=== PATIENT | male | born 1960 | race Caucasian/White ===

== ENCOUNTER 2016-10-29 16:18 | Emergency (ER) | payer MEDICAID ==
[~2016-10-29] VITALS: Ht 165.1 cm; Wt 55.0 kg
[~2016-10-29 16:18] MED LIST: ACET500C5 PO; BACTDS PO; CEPH-443 PO; CEPH500C PO; IBUP400T22 PO
[2016-10-29 16:22] VITALS: Ht 165.1 cm; Wt 55.0 kg
[2016-10-29] MEDS ORDERED: KETOROLAC 15 MG INJ IV STA (18:43)
[2016-10-29] MEDS ORDERED: CEFTRIAXONE 1 GM/50 ML (PMX) 50 ML IVPB STA (18:43)
[2016-10-29] MEDS ORDERED: TRIMETHOPRIM/SULFAMETHOX (DS) TAB PO ONE (19:00)
--- NOTE | 2016-10-29 19:08 | RADRPT ---
PROCEDURE: XR Ankle. CLINICAL INDICATION: 56 years of age, male. Pain and cellulitis.. TECHNIQUE: Three views of the right ankle. COMPARISON: None available. FINDINGS: No acute fracture or dislocation is identified. Negative for periosteal reaction or bony destructio n to indicate osteomyelitis. Normal alignment on this non-stressed view. There is moderate soft tissue swelling involving the lower leg, ankle and foot. Negative for soft ti ssue gas.. IMPRESSION: Moderate soft tissue swelling without soft tissue gas. No focal bony abnormality is seen.. RPTAT: HCTS Physician Sarahi Date Time Electronically viewed and signed by Physician Sarahi on 10/29/2016 19:08 CS/
[2016-10-29 19:40] LABS: BASOPHILS % 0.3 % (0.0-2.0); EOSINOPHILS # 0.4 10^3/ul (0.0-0.5); EOSINOPHILS % 2.7 % (0.0-7.0); HEMATOCRIT 36.5 % (42.0-52.0); HEMOGLOBIN 11.9 g/dl (14.0-18.0); LYMPHOCYTES # 1.5 10^3/ul (0.8-2.9); MEAN CORPUSCULAR HEMOGLOBIN 27.4 pg (29.0-33.0); MEAN CORPUSCULAR HGB CONC 32.6 g/dl (32.0-37.0); MEAN CORPUSCULAR VOLUME 83.9 fl (82.0-101.0); MEAN PLATELET VOLUME 9.2 fl (7.4-10.4); MONOCYTE # 1.3 10^3/ul (0.3-0.9); MONOCYTES % 10.3 % (0.0-11.0); NEUTROPHIL # 9.5 10^3/ul (1.6-7.5); NEUTROPHILS % 74.2 % (39.0-77.0); PLATELET COUNT 358 10^3/UL (140-415); RED BLOOD COUNT 4.35 10^6/ul (4.70-6.10); RED CELL DISTRIBUTION WIDTH 12.3 % (11.5-14.5); WHITE BLOOD COUNT 12.8 10^3/ul (4.8-10.8)
[2016-10-29 20:03] LABS: ALBUMIN 3.4 g/dl (3.3-4.9); ALBUMIN/GLOBULIN RATIO 1.13; BILIRUBIN,INDIRECT 0.2 mg/dl (0-1.1); BILIRUBIN,TOTAL 0.2 mg/dl (0.2-1.3); CALCIUM 8.9 mg/dl (8.4-10.2); CREATININE 0.74 mg/dl (0.61-1.24); POTASSIUM 4.2 mmol/L (3.5-5.1); TOTAL PROTEIN 6.4 g/dl (6.1-8.1)
[2016-10-29] MEDS ORDERED: CEPH-443 PO (20:09)
[2016-10-29] MEDS ORDERED: SULF1TAB31 PO (20:09)
[2016-10-29] MEDS ORDERED: IBUP-1542 PO (20:09)
--- NOTE | 2016-10-29 20:13 | ERD ---
ER Documentation Chief Complaint Date/Time DATE: 10/29/16 TIME: 20:11 Chief Complaint Complains of right leg pain x 3 days HPI This 56-year-old male complains of right ankle pain and redness for last 3 days. He may have an abrasion as he is frequently and down stairs and cycling cans and bottles. Denies vomiting, shortness breath or chest pain. He felt febrile last night. ROS All systems reviewed and are negative except as per history of present illness. Medications Home Meds Active Scripts Cephalexin* (Keflex*) 500 Mg Capsule, 500 MG PO QID for 7 Days, CAP Prov:REJI MANDEL MD 10/29/16 Sulfamethoxazole/Trimethoprim* (Bactrim Ds* Tablet) 1 Each Tablet, 1 TAB PO BID for 7 Days, #14 TAB Prov:REJI MANDEL MD 10/29/16 Ibuprofen* (Motrin*) 600 Mg Tab, 600 MG PO Q6, #15 TAB Prov:REJI MANDEL MD 10/29/16 Cephalexin* (Keflex*) 500 Mg Capsule, 500 MG PO QID for 5 Days, CAP Prov:SANTANA CHACKO NP 12/03/15 Acetaminophen* (Tylophen*) 500 Mg Capsule, 1 CAP PO Q6H Y for PAIN AND OR ELEVATED TEMP, #20 CAP Prov:SANTANA CHACKO NP 12/03/15 Ibuprofen* (Motrin*) 400 Mg Tab, 400 MG PO Q6 for 7 Days, #30 TAB 0 Refills Prov:ELMIRA FOX PA-C 10/06/15 Sulfamethoxazole-Trimethoprim* (Bactrim* DS) 800-160 Mg Tab, 1 TAB PO BID for 7 Days, #14 TAB 0 Refills Prov:ELMIRA FOX PA-C 10/06/15 Cephalexin* (Cephalexin*) 500 Mg Capsule, 500 MG PO Q8 for 7 Days, #21 CAP 0 Refills Prov:ELMIRA FOX PA-C 10/06/15 Allergies Allergies: Coded Allergies: No Known Allergy (Unverified , 10/05/15) PMhx/Soc Medical and Surgical Hx: pt denies Surgical Hx History of Surgery: No Anesthesia Reaction: No Hx Neurological Disorder: No Hx Respiratory Disorders: No Hx Cardiac Disorders: No Hx Psychiatric Problems: No Hx Miscellaneous Medical Probl: Yes (Hep C) Hx Alcohol Use: Yes Hx Substance Use: Yes (MEHT, LAST 1 WEEK AGO) Hx Tobacco Use: Yes (15 CIGS/DAY) Smoking Status: Current every day smoker Physical Exam Vitals Vital Signs Date Time Temp Pulse Resp B/P Pulse Ox O2 Delivery O2 Flow Rate FiO2 10/29/16 16:22 98.4 106 20 128/82 98 Physical Exam Const: [] Alert, not ill-appearing. Head: Atraumatic Eyes: Normal Conjunctiva ENT: Normal External Ears, Nose and Mouth. Neck: Full range of motion..~ No meningismus. Resp: Clear to auscultation bilaterally Cardio: Regular rate and rhythm, no murmurs Abd: Soft, non tender, non distended. Normal bowel sounds Skin: No petechiae or rashes Back: No midline or flank tenderness Ext: No cyanosis, or edema. There is some redness and swelling around the right ankle and tenderness. There is no calf swelling or Homans sign there is no significant bony tenderness. No evidence of deficits. Neur: Awake and alert Psych: Normal Mood and Affect Result Diagram: 10/29/16192910/29/161929 Results 24 hrs Laboratory Tests Test 10/29/16 19:30 White Blood Count 12.810^3/ul Red Blood Count 4.3510^6/ul Hemoglobin 11.9g/dl Hematocrit 36.5% Mean Corpuscular Volume 83.9fl Mean Corpuscular Hemoglobin 27.4pg Mean Corpuscular Hemoglobin Concent 32.6g/dl Red Cell Distribution Width 12.3% Platelet Count 93833^3/UL Mean Platelet Volume 9.2fl Neutrophils % 74.2% Lymphocytes % 12.0% Monocytes % 10.3% Eosinophils % 2.7% Basophils % 0.3% Nucleated Red Blood Cells % 0.0/100WBC Neutrophils # 9.510^3/ul Lymphocytes # 1.510^3/ul Monocytes # 1.310^3/ul Eosinophils # 0.410^3/ul Basophils # 0.010^3/ul Nucleated Red Blood Cells # 0.010^3/ul Sodium Level 139mmol/L Potassium Level 4.2mmol/L Chloride Level 102mmol/L Carbon Dioxide Level 32mmol/L Anion Gap 9 Blood Urea Nitrogen 15mg/dl Creatinine 0.74mg/dl Glucose Level 97mg/dl Calcium Level 8.9mg/dl Total Bilirubin 0.2mg/dl Direct Bilirubin 0.00mg/dl Indirect Bilirubin 0.2mg/dl Aspartate Amino Transf (AST/SGOT) 26IU/L Alanine Aminotransferase (ALT/SGPT) 38IU/L Alkaline Phosphatase 89IU/L Total Protein 6.4g/dl Albumin 3.4g/dl Globulin 3.00g/dl Albumin/Globulin Ratio 1.13 Current Medications Medications (Trade) Dose Ordered Sig/Samantha Route PRN Reason Start Time Stop Time Status Last Admin Dose Admin Ketorolac Tromethamine 15 mg 15 mg ONCE STAT IV 10/29/16 18:43 10/29/16 18:44 DC 10/29/16 19:35 Ceftriaxone Sodium (Rocephin) 50 ml @ 100 mls/hr ONCE STAT IVPB 10/29/16 18:43 10/29/16 19:12 DC 10/29/16 19:35 Trimethoprim/ Sulfamethoxazole (Bactrim (Ds)) 1 tab ONCE ONCE PO 10/29/16 19:00 10/29/16 19:01 DC 10/29/16 19:35 Procedures/MDM Presents with signs of cellulitis on the right ankle. There is no laceration or puncture wound. X-ray Ankle 3V Interpreted by me: Bones: [No fracture] Joints: No dislocation patient-soft tissue swelling without fracture dislocation of right ankle. CBC shows white blood cell count of 12. Patient was given Rocephin 1 g IV, Toradol 30 mg IV and Bactrim double strength p.o. Patient shows no signs of sepsis or signs or symptoms to suggest osteomyelitis, no evidence of DVT on clinical exam. Patient will be treated with Bactrim and Keflex and ibuprofen instructions for elevation and return precautions. The patient was stable with no new complaints during the ER course. Clinically, there is no current evidence to suggest meningitis, sepsis, acute abdomen, pneumonia, acute coronary syndrome, pulmonary embolism, or any other emergent condition appearing to require further evaluation or hospitalization. The patient should certainly return for any new or worsening symptoms per the aftercare instructions. They should otherwise follow-up with her primary care doctor for reevaluation this week. Disclaimer: Inadvertent spelling and grammatical errors are likely due to EHR/dictation software use and do not reflect on the overall quality of patient care. Also, please note that the electronic time recorded on this note does not necessarily reflect the actual time of the patient encounter. Departure Diagnosis: Primary Impression: Cellulitis Site of cellulitis: extremity Site of cellulitis of extremity: lower extremity Laterality: right Qualified Code: L03.115 - Cellulitis of right lower extremity Additional Impression: Pain of right leg Condition: Stable Patient Instructions: Cellulitis Additional Instructions: Elevated at home. Recheck for new or worsening symptoms with primary care doctor. REJI MANDEL MD Oct 29, 2016 20:13
[2016-10-29 20:30] VITALS: BP 106/68; PULSE 98; RESP 17; TEMP 98.1
== END 2016-10-29 20:30 | disposition home or self-care (01) ==
LOC: FTE 16:18
DX: L03.115 Cellulitis of right lower limb (principal); F17.210 Nicotine dependence, cigarettes, uncomplicated
CPT/HCPCS: 36415; 73610; 80053; 85025; 96365; 96375; J0696; J1885; Z7502; Z7610

== ENCOUNTER 2018-01-11 08:29 | Emergency (ER) | END 2018-01-11 14:44 | disposition left against medical advice (07) ==

== ENCOUNTER → 2018-08-12 | Emergency (ER) | payer OTHER ==
[~2018-08-12] VITALS: Ht 167.6 cm; Wt 59.7 kg
[~2018-08-12] MED LIST changes: -ACET500C5 PO; -BACTDS PO; -CEPH500C PO; +FER325 PO; -IBUP400T22 PO; +SULF1TAB31 PO
[2018-08-12 10:59] VITALS: BP 119/75; PULSE 90; RESP 18; Ht 167.6 cm; Wt 59.7 kg
--- NOTE | 2018-08-12 11:44 | ERD ---
ER Documentation Chief Complaint Chief Complaint b/l upper arm abcess x 3 weeks HPI This is a 58-year-old male who presents with a healing abscess on his right upper extremity. He states he has had it for 3 weeks and it has already opened up and drained. The area is now crusting over and very dry. He had no fever. No numbness or tingling. Pain is controlled. ROS All systems reviewed and are negative except as per history of present illness. Medications Home Meds Active Scripts Cephalexin* (Keflex*) 500 Mg Capsule, 500 MG PO QID for 7 Days, CAP Prov:LIZANDRO CATALAN PA-C 08/12/18 Sulfamethoxazole/Trimethoprim* (Bactrim Ds* Tablet) 1 Each Tablet, 1 TAB PO BID, #14 TAB Prov:LIZANDRO CATALAN PA-C 08/12/18 Reported Medications Ferrous Sulfate* (Ferrous Sulfate*) 325 Mg Tabec, 325 MG PO DAILY, TAB 01/11/18 Allergies Allergies: Coded Allergies: No Known Allergy (Unverified , 10/05/15) PMhx/Soc History of Surgery: No Anesthesia Reaction: No Hx Neurological Disorder: No Hx Respiratory Disorders: No Hx Cardiac Disorders: No Hx Psychiatric Problems: No Hx Miscellaneous Medical Probl: Yes (Hep C) Hx Alcohol Use: Yes Hx Substance Use: Yes (MEHT, LAST 1 WEEK AGO) Hx Tobacco Use: Yes (15 CIGS/DAY) FmHx Family History: No diabetes Physical Exam Vitals Vital Signs Date Temp Pulse Resp B/P (MAP) Pulse Ox O2 O2 Flow FiO2 Time Delivery Rate 08/12/18 98.3 90 18 119/75 97 10:59 (90) Physical Exam Const: No acute distress Head: Atraumatic Eyes: Normal Conjunctiva ENT: Normal External Ears, Nose and Mouth. Neck: Full range of motion. No meningismus. Resp: Clear to auscultation bilaterally Cardio: Regular rate and rhythm, no murmurs Abd: Soft, non tender, non distended. Normal bowel sounds Skin: Right upper extremity over the lateral humerus area there is a healing abscess that is flat, no significant erythema, approximately 5 to 7 cm in diameter, dry flaky skin Procedures/MDM This patient has a healing abscess. Is already open and has been drained. No indication for further incision and drainage. He is discharged with Bactrim and Keflex. Patient counseled regarding my diagnostic impression and care plan. Prior to discharge all questions answered. Pt agrees with treatment plan and understands strict return precautions. Pt is instructed to follow up with primary care provider within 24-48 hours. Precautionary instructions provided including instructions to return to the ER if not improving or for any worsening or changing symptoms or concerns. Departure Diagnosis: Primary Impression: Abscess Condition: Stable Patient Instructions: Abscess, Antiobiotic Treatment Only Additional Instructions: Call your primary care doctor TOMORROW for an appointment during the next 1-2 days.See the doctor sooner or return here if your condition worsens before your appointment time. LIZANDRO CATALAN PA-C Aug 12, 2018 11:44
== END | disposition home or self-care (01) ==
LOC: FTE 10:54
DX: L02.413 Cutaneous abscess of right upper limb (principal); Z87.891 Personal history of nicotine dependence
CPT/HCPCS: 99283

== ENCOUNTER 2018-09-12 11:52 | Emergency (ER) | payer OTHER ==
[~2018-09-12] VITALS: Ht 160 cm; Wt 58.4 kg
[2018-09-12 11:54] VITALS: BP 150/79; PULSE 111; RESP 24; Ht 160 cm; Wt 58.4 kg
--- NOTE | 2018-09-12 13:08 | ERD ---
ER Documentation Chief Complaint Chief Complaint LEFT AND RIGHT ARM SWELLING X 2 WEEKS HPI 58 yr old male presenting with abscess and request for antibiotics. Patient sheets of heroin twice a day and is planning to return to rehab tomorrow but requested for antibiotics. Patient last antibiotics 2 weeks ago states that the abscesses are returning. Medical history denies. Social history she is heroin and smokes half pack a day. NKDA. Social history denies ROS All systems reviewed and are negative except as per history of present illness. Medications Home Meds Active Scripts Cephalexin* (Keflex*) 500 Mg Capsule, 500 MG PO QID for 7 Days, CAP Prov:DAVEY GOMEZ PA-C 09/12/18 Sulfamethoxazole/Trimethoprim* (Bactrim Ds* Tablet) 1 Each Tablet, 1 TAB PO BID, #14 TAB Prov:DAVEY GOMEZ PA-C 09/12/18 Cephalexin* (Keflex*) 500 Mg Capsule, 500 MG PO QID for 7 Days, CAP Prov:LIZANDRO CATALAN PA-C 08/12/18 Sulfamethoxazole/Trimethoprim* (Bactrim Ds* Tablet) 1 Each Tablet, 1 TAB PO BID, #14 TAB Prov:LIZANDRO CATALAN PA-C 08/12/18 Reported Medications Ferrous Sulfate* (Ferrous Sulfate*) 325 Mg Tabec, 325 MG PO DAILY, TAB 01/11/18 Allergies Allergies: Coded Allergies: No Known Allergy (Unverified , 10/05/15) PMhx/Soc Medical and Surgical Hx: pt denies Surgical Hx History of Surgery: No Anesthesia Reaction: No Hx Neurological Disorder: No Hx Respiratory Disorders: No Hx Cardiac Disorders: No Hx Psychiatric Problems: No Hx Miscellaneous Medical Probl: Yes (Hep C) Hx Alcohol Use: Yes Hx Substance Use: Yes (MEHT) Hx Tobacco Use: Yes (15 CIGS/DAY) Smoking Status: Current every day smoker FmHx Family History: No diabetes, No coronary disease, No other Physical Exam Vitals Vital Signs Date Temp Pulse Resp B/P (MAP) Pulse Ox O2 O2 Flow FiO2 Time Delivery Rate 09/12/18 99.5 111 24 150/79 98 11:54 (102) Physical Exam GENERAL: The patient is well-appearing, well-nourished, in no acute distress HEENT: Atraumatic. Conjunctivae are pink. Pupils equal, round, and reactive to light. There is no scleral icterus. Tympanic membranes clear bilaterally. Oropharynx clear. NECK: C-spine is soft and supple. There is no meningismus. There is no cervical lymphadenopathy. CHEST: Clear to auscultation bilaterally. There are no rales, wheezes or rhonchi. HEART: Regular rate and rhythm. No murmurs, clicks, rubs or gallops. SKIN: Erythematous nodules noted on the arm that are indurated but no fluctuance. No lymphatic streaking. Procedures/MDM MDM: 58-year-old male presenting with cellulitic regions due to skin popping. Patient will be discharged with antibiotics. There is no indication for I&D as there is no fluctuance on exam. Patient has indurated sites. Patient will be discharged with supportive medications and recommended to follow-up with primary care doctor. Patient is also recommended to return to rehab. Patient is told symptoms change or worsen to return to emergency room. All questions answered at discharge Departure Diagnosis: Primary Impression: Abscess Condition: Stable Patient Instructions: Abscess, Antiobiotic Treatment Only Referrals: [facility] YOU HAVE RECEIVED A MEDICAL SCREENING EXAM AND THE RESULTS INDICATE THAT YOU DO NOT HAVE A CONDITION THAT REQUIRES URGENT TREATMENT IN THE EMERGENCY DEPARTMENT. FURTHER EVALUATION AND TREATMENT OF YOUR CONDITION CAN WAIT UNTIL YOU ARE SEEN IN YOUR DOCTORS OFFICE WITHIN THE NEXT 1-2 DAYS. IT IS YOUR RESPONSIBILITY TO MAKE AN APPOINTMENT FOR FOLOW-UP CARE. IF YOU HAVE A PRIMARY DOCTOR --you should call your primary doctor and schedule an appointment IF YOU DO NOT HAVE A PRIMARY DOCTOR YOU CAN CALL OUR PHYSICIAN REFERRAL HOTLINE AT IF YOU CAN NOT AFFORD TO SEE A PHYSICIAN YOU CAN CHOSE FROM THE FOLLOWING FORMERLY [facility] [address] [facility] [address] [facility] [facility] [address] [facility] [address] [facility] [address] [facility] [address] [facility]. [address] Additional Instructions: FOLLOW UP WITH YOUR PRIMARY CARE PHYSICIAN TOMORROW.Return to this facility if you are not improving as expected. DAVEY GOMEZ PA-C Sep 12, 2018 13:08
== END 2018-09-12 13:00 | disposition home or self-care (01) ==
LOC: FTE 11:52
DX: L02.413 Cutaneous abscess of right upper limb (principal); L02.414 Cutaneous abscess of left upper limb; F17.210 Nicotine dependence, cigarettes, uncomplicated
CPT/HCPCS: 99283